=== PATIENT | female | born 1995 | race African-American/Black ===

== ENCOUNTER 2019-10-05 22:07 | Emergency (ER) | payer OTHER ==
[~2019-10-05] VITALS: Ht 152.4 cm; Wt 89.8 kg
[2019-10-05 22:21] VITALS: BP 130/87
== END 2019-10-05 23:34 | disposition left against medical advice (07) ==
LOC: ER 22:07
DX: R21 Rash and other nonspecific skin eruption (principal); Z53.21 Procedure and treatment not carried out due to patient leaving prior to being seen by health care provider